=== PATIENT | female | born 1960 | race Caucasian/White ===

== ENCOUNTER 2016-12-26 10:35 | Inpatient (IN) | payer OTHER ==
[~2016-12-26 10:35] MED LIST: ASPIRIN325 MG PO; CENTRUM SILVER1 EAC1 PO; CETIRIZINE HCL10 MG PO; DICLOFENAC SODI75 MG PO; ESTRACE0.5 MG PO; FERROUS SULFAT325 MG PO; K-DUR20 MEQ PO; LASIX40 MG PO; LAXATIVE OF CHOICE; LOVENOX40 MG/0.4 SC; MAGNESIUM400 MG PO; MIRALAX17 GM PO; MORPHINE 30MG E30 MG PO; MUCINEX600 MG PO; NASACORT16.9 ML; PERCOCET 5-3251 EACH PO; PRILOSEC20 MG PO; SUPER B COMPLE150 MG PO; TYLENOL325 M1 PO; VENTOLIN HFA IN18 GM INH; VITAMIN D-32000 UNI1 PO; VITAMIN E200 UNI3 PO
[2016-12-27 07:25] LABS: HCT 33.6 % (37.0-47.0); HGB 10.8 g/dl (12.5-16.0); MCH 30.2 pg (25.0-31.0); MCHC 32.1 g/dL (32.0-36.0); MCV 93.9 fL (78.0-100.0); MPV 9.1 fL (6.0-9.5); RBC 3.58 M/uL (4.20-5.40); RDW 13.4 % (11.5-14.0); WBC 8.2 K/uL (4.0-10.5)
[2016-12-27 07:44] LABS: CREATININE 0.7 mg/dL (0.5-1.0); POTASSIUM 3.9 mmol/L (3.5-5.1)
[2016-12-28 08:20] LABS: HCT 33.5 % (37.0-47.0); HGB 10.7 g/dl (12.5-16.0); MCH 30.4 pg (25.0-31.0); MCHC 31.9 g/dL (32.0-36.0); MCV 95.2 fL (78.0-100.0); MPV 9.6 fL (6.0-9.5); RBC 3.52 M/uL (4.20-5.40); RDW 13.5 % (11.5-14.0); WBC 7.3 K/uL (4.0-10.5)
[2016-12-28 08:45] LABS: CREATININE 0.7 mg/dL (0.5-1.0); POTASSIUM 3.8 mmol/L (3.5-5.1)
[2016-12-28] MEDS ORDERED: CENTRUM COMPLE1 EACH PO (10:50)
[2016-12-28] MEDS ORDERED: LASIX40 MG PO (10:50)
[2016-12-28] MEDS ORDERED: VITAMIN B-121000 MC1 PO (11:01)
[2016-12-28] MEDS ORDERED: ESTRACE1 M1 PO (11:02)
[2016-12-28] MEDS ORDERED: PRILOSEC20 MG PO (11:02)
[2016-12-28] MEDS ORDERED: FLONASE ALLER15.8 ML (11:02)
[2016-12-28] MEDS ORDERED: VENTOLIN HFA IN18 GM INH (11:03)
[2016-12-28] MEDS ORDERED: ALL DAY ALLERGY10 M2 PO (11:03)
[2016-12-28] MEDS ORDERED: ASPIR 8181 MG PO (11:03)
[2016-12-28] MEDS ORDERED: KLOR-CON25 MEQ PO (11:03)
[2016-12-28] MEDS ORDERED: LAXATIVE25 MG PO (11:04)
[2016-12-28] MEDS ORDERED: MUCINEX 600MG600 MG PO (11:04)
[2016-12-28] MEDS ORDERED: PERCOCET 10-321 EACH PO (11:04)
[2016-12-28] MEDS ORDERED: [UNRECOGNIZED DRUG - CODE] TOP (11:04)
[2016-12-28] MEDS ORDERED: KETOROLAC TROME10 MG PO (11:10)
== END 2016-12-28 12:26 | disposition home health service (06) | DRG 483 ==
LOC: FMS 10:35
PROVIDERS: Internal Medicine; ADMIT Orthopaedic Surgery
PROC: 0RRK0JZ Replacement of Left Shoulder Joint with Synthetic Substitute, Open Approach (ICD-10-PCS; principal; 2016-12-26 07:00)
DX: M19.012 Primary osteoarthritis, left shoulder (principal); F32.9 Major depressive disorder, single episode, unspecified; K21.9 Gastro-esophageal reflux disease without esophagitis; G89.29 Other chronic pain; Z88.0 Allergy status to penicillin; Z88.1 Allergy status to other antibiotic agents; Z83.3 Family history of diabetes mellitus; Z82.49 Family history of ischemic heart disease and other diseases of the circulatory system; Z83.6 Family history of other diseases of the respiratory system; Z82.3 Family history of stroke
CPT/HCPCS: 36415; 36600; 73020; 80048; 82803; 86850; 86900; 86901; 88304; 88311; 94010; 94760; 94762; 97116; 97162; 97166; 97530; 97530-GP; 97535; C1776; J0131; J1170; J1885; J2270; J2405; J2704; J2795; J3010